=== PATIENT | male | born 1970 | race Caucasian/White ===

== ENCOUNTER 2018-10-11 10:59 | Day surgery (SDC) | payer BC ==
[~2018-10-11 10:59] MED LIST: ACETAMINOPHEN 1,000 MG/100 ML BTL IVPB ONE; CEFAZOLIN 1G VIAL IVP ONE; CEFAZOLIN 2 Gram 2 GM/50 ML BAG IVPB ONE; MORPHINE SULFATE 4 MG/ML VIAL ONE; WATER STERILE FOR INJECTION 20 ML VIAL MC ONE
[2018-10-11] MEDS ORDERED: EPHEDRINE SULFATE 50 MG/ML ML IV ONE (11:00)
[2018-10-11] MEDS ORDERED: FENTANYL PF 100MCG/2ML VIAL IV ONE (11:00)
[2018-10-11] MEDS ORDERED: SEVOFLURANE 250 ML INH ONE (11:00)
[2018-10-11] MEDS ORDERED: GLYCOPYRROLATE 0.2 MG/ML ML IV ONE (11:00)
[2018-10-11] MEDS ORDERED: PROPOFOL 10 MG/ML VIAL IV ONE (11:00)
[2018-10-11] MEDS ORDERED: MIDAZOLAM HCL 2MG/2ML VIAL IV ONE (11:00)
[2018-10-11] MEDS ORDERED: ONDANSETRON HCL IV 4 MG/2 ML VIAL IVP ONE (11:00)
[2018-10-11] MEDS ORDERED: LIDOCAINE 2% MDV (20MG/ML) 20ML VIAL IV ONE (11:00)
[2018-10-11] MEDS ORDERED: RINGERS SOLUTION,LACTATED 1,000 ML IV ONE (11:30)
[2018-10-11] MEDS ORDERED: METHYLPREDNISOLONE 40MG/VIAL IM ONE (13:15)
[2018-10-11] MEDS ORDERED: BUPIVACAINE 0.5% W/EPI MPF 30 ML VIAL SQ ONE (13:15)
[2018-10-11] MEDS ORDERED: MORPHINE SULFATE 5 MG/ML VIAL IM ONE (13:15)
[2018-10-11] MEDS ORDERED: HYDROCODONE/APAP 7.5/325MG TABLET PO ONE (13:58)
--- NOTE | 2018-10-12 09:20 | Operative Note ---
DATE OF SURGERY: 10/11/2018 PREOPERATIVE DIAGNOSIS: Internal derangement of the left knee. POSTOPERATIVE DIAGNOSES: 1. Complex tear involving the posterior horn of the medial meniscus. 2. Grade 3 with small area of grade 4 change of the posterior aspect of the medial tibial plateau. 3. Grade 3 chondromalacia of the medial femoral condyle. OPERATION: 1. Left knee arthroscopy with partial medial meniscectomy. 2. Left knee arthroscopy with chondroplasty of the structures in the medial compartment. STAFF SURGEON: Thomas Gonzalez MD ANESTHESIA: General. PREPARATION: Chloraprep. INDIVIDUAL CONSIDERATIONS: None. PROCEDURE: The patient was taken to the operating room and placed supine on the operating room table. The patient was then prepped and draped in the usual fashion. The patient had a superolateral inflow cannula placed. The knee was inflated with normal saline. An inferomedial and an inferolateral portal were made in a similar fashion. The arthroscope was introduced through the inferolateral portal up into the pouch. Patellofemoral joint was basically normal. No loose bodies were seen in the pouch or either gutter medially. He had an obvious complex tear involving the posterior horn of the medial meniscus which was debrided back to a stable rim with a shaver. He had a small area of grade 4 change posteromedially on the tibial plateau and grade 3 change in the medial femoral condyle just lateral to the midline centered about 45 degrees about the size of a quarter. This was smoothed off with a shaver but luckily not down to bone. In the notch, the cruciates were normal, and lateral compartment structures were normal. The knee was then irrigated out with saline to remove loose floating debris. Portals were closed with sangeeta, and 20 mL of 0.5% Marcaine with epinephrine along with 4 mg of morphine and 40 mg of Depo-Medrol were injected into the knee. A sterile bulky compressive dressing was applied. The patient tolerated the procedure well. Needle and sponge counts were correct. Estimated blood loss was minimal. He was taken back to recovery in good condition. There were no complications. [facility]ENTERJessica
== END 2018-10-11 14:15 | disposition home or self-care (01) ==
LOC: SUR 10:59
PROVIDERS: ATTEND Orthopaedic Surgery
DX: S83.232A Complex tear of medial meniscus, current injury, left knee, initial encounter (principal); M94.262 Chondromalacia, left knee; E66.9 Obesity, unspecified
CPT/HCPCS: 29881; 01400; J2405; J3010; J0690; J2270; J1030; J7120